=== PATIENT | female | born 1940 | race Caucasian/White ===

== ENCOUNTER → 2021-05-29 | Day surgery (SDC) | payer MEDICARE, OTHER ==
[~2021-05-29] VITALS: Ht 165.1 cm; Wt 59.9 kg
[~2021-05-29] MED LIST: ALLEGRA ALLERG180 MG PO; BENTYL10 MG PO; BETIMOL5 ML OS; CALCIUM PO; COZAAR100 MG PO; ELAVIL25 MG PO; FLORASTOR250 MG PO; IMODIUM A-D2 MG PO; MELATONIN5 M2 PO; METHOCARBAMOL500 MG PO; NORCO 5-325 TA1 EACH PO; SINGULAIR10 MG PO; STARLIX60 MG PO; SYNTHROID100 MCG PO; VENTOLIN HFA IN18 GM INH; VITAMIN D PO; ZOCOR20 MG PO; vitamin b PO
[2021-05-29 08:02] LABS: HCT 43.2 % (37.0-47.0); HGB 13.9 g/dl (12.5-16.0); MCH 30.5 pg (25.0-31.0); MCHC 32.2 g/dL (32.0-36.0); MCV 94.9 fL (78.0-100.0); MPV 10.2 fL (6.0-9.5); RBC 4.55 M/uL (4.20-5.40); RDW 12.1 % (11.5-14.0); WBC 5.8 K/uL (4.0-10.5)
[2021-05-29 08:27] LABS: ALBUMIN 4.2 g/dL (3.4-5.0); BILIRUBIN - TOTAL 0.6 mg/dL (0.2-1.0); CREATININE 1.06 mg/dL (0.51-0.95); GLOBULIN (CALCULATION) 3.4 g/dL; TOTAL PROTEIN 7.6 g/dL (6.4-8.2)
== END | disposition home or self-care (01) ==
LOC: FAS 05-28 08:30
PROVIDERS: Surgery
DX: Z12.11 Encounter for screening for malignant neoplasm of colon (principal); K57.30 Diverticulosis of large intestine without perforation or abscess without bleeding; K63.89 Other specified diseases of intestine; Z86.010 Personal history of colon polyps; Z80.0 Family history of malignant neoplasm of digestive organs
CPT/HCPCS: 36415; 80053; J2704; J7120